=== PATIENT | male | born 1990 | race Caucasian/White ===

== ENCOUNTER 2018-09-14 10:49 | Emergency (ER) | payer MEDICAID ==
[~2018-09-14] VITALS: Ht 170.2 cm; Wt 83.9 kg
[2018-09-14 12:13] VITALS: BP 152/91
== END 2018-09-14 13:05 | disposition home or self-care (01) ==
LOC: ER 10:49
DX: S83.92XA Sprain of unspecified site of left knee, initial encounter (principal); S81.832A Puncture wound without foreign body, left lower leg, initial encounter; Z88.0 Allergy status to penicillin; V23.4XXA Motorcycle driver injured in collision with car, pick-up truck or van in traffic accident, initial encounter; Y93.89 Activity, other specified; Y99.8 Other external cause status; Y92.488 Other paved roadways as the place of occurrence of the external cause
CPT/HCPCS: 73562; 73590